=== PATIENT | male | born 1970 | race Caucasian/White ===

== ENCOUNTER 2022-04-17 05:54 | Day surgery (SDC) | payer OTHER, SELFPAY ==
[2022-04-14 14:36] VITALS: BMI 23.7
[2022-04-17 06:28] VITALS: BP 131/72; PULSE 84; RESP 18; TEMP 36.9; O2SAT 99
[2022-04-17] MEDS: sodium chloride 0.9% 1,000 ML 30 ML IV (06:35)
--- NOTE | 2022-04-17 06:56 | ANES.PREANE2 ---
Pre-Anesthetic Assessment Height/Weight: Height 1.85 m Weight 81.647 kg Temp Pulse Resp BP Pulse Ox O2 Del Method 98.4 F 84 18 131/72 99 04/17/22 06:28 04/17/22 06:28 04/17/22 06:28 04/17/22 06:28 04/17/22 06:28 04/17/22 06:28 Preop Diagnosis: screening Operation Date: 04/17/22 07:30 Proposed Procedures p Colonoscopy 43859,Z12.11(Not Applicable) - Jesse Perez DO Familial anesthetic complications: none Was Beta Suhail taken within 24 hours: N/A Was Clonidine taken within 24 hours: N/A Last intake: Intake Last Liquid Date 04/16/22 Last Liquid Time 22:00 Last Solid Date 04/15/22 Last Solid Time 19:00 Last Intake: 22:00 Social No alcohol and No tobacco Exam alert, oriented x 3, clear to auscultation bilaterally and regular rate & rhythm Airway Submandibular: within normal limits Cervical ROM: within normal limits Mallampati: Class I Dentition: full Pulmonary Asthma (as child) CV/HEM Hypertension (borderline) None reported Hepatic None reported GI Gastroesophageal Reflux Disease (food related) Metabolic Diabetes Mellitus (borderline) Musc/skel None reported Neuropsych None reported Anesthetic Plan ASA status: 1 Anesthesia: MAC Risk of > 500 ml blood loss (7ml/kg in children): No Medications/Allergies Home Medications Medication Instructions Recorded Confirmed Last Taken Type No Known Home Medications 02/26/22 04/17/22 Unknown History Allergies Allergy/AdvReac Type Severity Reaction Status Date / Time No Known Allergies Allergy Unverified 04/14/22 14:38 Current Medications Generic Name Dose Route Start Last Admin Trade Name Machoq PRN Reason Stop Dose Admin Sodium Chloride 1,000 mls @ 30 mls/hr 04/17/22 06:30 04/17/22 06:35 Sodium Chloride 0.9% IV 04/18/22 06:29 30 mls/hr .Q24H ENRRIQUE Administration Data Anesthesia Cardiac Studies: No Data to Display
--- NOTE | 2022-04-17 07:34 | PM.HP ---
Providers/Chief Complaint Primary Care Provider: Edu Torres MD Chief Complaint: encounter for screening for malignant neoplasm History of Present Illness Jean Garcia is a 51 year old male here for his first screening colonoscopy. He denies any abdominal pain, nausea, emesis, constipation, hematochezia and/or melena. He reports that occasionally he gets diarrhea. Denies any family history of colon cancer. Review of Systems General: Reports: 10 or more systems reviewed and unremarkable except in HPI and below Medications/Allergies Home Medications Medication Instructions Recorded Confirmed Last Taken Type No Known Home Medications 02/26/22 04/17/22 Unknown History Allergies Allergy/AdvReac Type Severity Reaction Status Date / Time No Known Allergies Allergy Unverified 04/14/22 14:38 Vitals/I&O/Wt Last Vital Signs Temp 98.4 F 04/17/22 06:28 Pulse 84 04/17/22 06:28 Resp 18 04/17/22 06:28 BP 131/72 04/17/22 06:28 Pulse Ox 99 04/17/22 06:28 O2 Del Method 04/17/22 06:28 Physical Exam Narrative: General : Patient is well developed , no acute distress, oriented x3 Head : Normal cephalic, a-traumatic. Ears : Pinnae and external canal are normal. Hearing is normal. Eyes : PERRLA, Sclera and injection are normal. No conjunctival discharge. Nose : Mucous membranes are without erythema. Throat : buccal mucosa is normal, gums are without significant recession or hypertrophy. Lungs : Equal chest rise bilaterally, no use of accessory muscles, trachea is midline. Cor : Rate and rhythm are normal. Abdomen : Soft, ND, NT, no g/r/m Extremities : No edema, no cyanosis or clubbing, dorsalis pedis pulses are present bilaterally, non-tender to palpation of calves. Upper extremities are normal bilaterally. Back : non-tender to palpation, no CVA tenderness. Neuro : CN II - XII intact, Upper and lower extremities have equal and full strength A&P Assessment and plan (1) Colon cancer screening: Plan Colonoscopy The risks and benefits of the procedure, including bleeding, infection, intestinal perforation requiring surgery, missed lesion were explained to the patient. The patient is understanding of the risks and wishes to proceed. Attestations Medical Necessity Statement*: Home Coding Level of Care Code Acute Code for Chg Fwd Diagnoses Colon cancer screening Z12.11
[2022-04-17 08:00] VITALS: BP 106/71; PULSE 72; RESP 18; TEMP 36.6; O2SAT 98
[2022-04-17 08:11] VITALS: BP 112/71; PULSE 71; RESP 18; O2SAT 99
[2022-04-17 08:20] VITALS: BP 103/77; PULSE 78; RESP 18; O2SAT 97
--- NOTE | 2022-04-17 12:52 | ANE.PACU2 ---
Inpatient post-anesthesia follow up: Airway intact: Yes Vital signs: Temperature 97.8 F Pulse Rate 78 Respiratory Rate 18 Blood Pressure 103/77 Pulse Oximetry 97 Oxygen Delivery Me thod Room Air Oxygen Flow Rate Fraction of Inspir ed Oxygen Hydration adequate: Yes Nausea and vomiting: No Pain level: 2 Mental status: Baseline
== END 2022-04-17 08:30 | disposition home or self-care (01) ==
PROVIDERS: PCP Family Medicine; Visit Provider Surgery
PROC: 0DJD8ZZ Inspection of Lower Intestinal Tract, Via Natural or Artificial Opening Endoscopic (ICD-10-PCS; CPT 45378; principal; 2022-04-17 07:30)
DX: Z12.11 Encounter for screening for malignant neoplasm of colon (principal); I10 Essential (primary) hypertension; K21.9 Gastro-esophageal reflux disease without esophagitis; E11.9 Type 2 diabetes mellitus without complications
CPT/HCPCS: 45378; J2704; J7030